=== PATIENT | male | born 1935 | race Caucasian/White ===

== ENCOUNTER 2016-09-18 23:22 | Inpatient (IN) | payer MEDICARE, BC ==
[~2016-09-18] VITALS: Ht 167.6 cm; Wt 64.9 kg
[2016-09-18 23:27] VITALS: BP 169/120; PULSE 132; RESP 16; TEMP 98.6; O2SAT 98
[2016-09-18] MEDS ORDERED: SODIUM CHLORIDE 0.9% FLUSH 5 ML FLUSH IVF PRN (23:30)
[2016-09-18] MEDS ORDERED: NITROGLYCERIN-DEXTROSE INJ 250 ML IV SCH (23:30)
[2016-09-18] MEDS ORDERED: ASPIRIN 81 MG CHEW TAB PO STA (23:30)
[2016-09-18] MEDS ORDERED: NITROGLYCERIN 0.4 MG SL 25 TABS/BTL SL STA (23:30)
[2016-09-18] MEDS ORDERED: SODIUM CHLOR 0.9% 1000 ML INJ 1,000 ML IV ONE (23:30)
[2016-09-18] MEDS ORDERED: HEPARIN SODIUM - IV 10,000 UNITS/10 ML VIAL IV STA (23:30)
[2016-09-18 23:34] VITALS: RESP 16; O2SAT 96
[2016-09-18 23:43] LABS: I-STAT POTASSIUM 3.6 MMOL/L (3.5-4.9); I-STAT SODIUM 140 MMOL/L (138-146)
[2016-09-18] MEDS ORDERED: HEPARIN-D5W INJ 250 ML ONE (23:43)
[2016-09-18] MEDS ORDERED: LOSA25TA PO (23:43)
[2016-09-18] MEDS ORDERED: HYDR25TA5 PO (23:43)
[2016-09-18 23:45] VITALS: BP 169/120; PULSE 132; RESP 16
[2016-09-18 23:45] LABS: BASOPHIL # 0.1 TH/MM3 (0-0.2); BASOPHIL % 1.2 % (0.0-2.0); EOSINOPHIL # 0.2 TH/MM3 (0-0.4); EOSINOPHIL % 1.9 % (0.0-4.0); HEMATOCRIT 45.2 % (39.0-51.0); HEMO FLAGS DIFF FINAL; LYMPH % 22.9 % (9.0-44.0); LYMPHOCYTE # 2.2 TH/MM3 (1.0-4.8); MEAN CELL VOLUME 88.7 FL (80.0-100.0); MEAN CORPUSCULAR HGB CONC 33.8 % (32.0-36.0); MONO % 10.8 % (0.0-8.0); NEUT % 63.2 % (16.0-70.0); PLATELET COUNT 220 TH/MM3 (150-450); RED BLOOD COUNT 5.09 MIL/MM3 (4.50-5.90); RED CELL DISTRIBUTION WIDTH 13.2 % (11.6-17.2); WHITE BLOOD COUNT 9.5 TH/MM3 (4.0-11.0)
[2016-09-18] MEDS ORDERED: METOPROLOL TARTRATE 50 MG TAB PO ONE (23:45)
[2016-09-18] MEDS ORDERED: HEPARIN-D5W INJ 250 ML IV SCH (23:45)
[2016-09-18 23:56] LABS: APTT (PATIENT) 26.1 SEC (24.3-30.1); PROTHROMBIN TIME - PATIENT 11.1 SEC (9.8-11.6)
[2016-09-19] VITALS (23 sets, daily range): BP systolic 105–161; BP diastolic 73–98; PULSE 55–122; RESP 16–18; TEMP 97.9–98.7; O2SAT 94–99
[2016-09-19 00:05] LABS: MAGNESIUM 2.4 MG/DL (1.5-2.5)
[2016-09-19 00:06] LABS: CREATINE KINASE 83 U/L (39-308)
[2016-09-19] MEDS ORDERED: SODIUM CHLORIDE 0.9% FLUSH 5 ML FLUSH FLUSH PRN (00:15)
[2016-09-19] MEDS ORDERED: NALOXONE HCL 0.4 MG/ML AMP IV PRN (00:15)
--- NOTE | 2016-09-19 00:23 | PD ---
HPI Chief Complaint: Chest Pain Time Seen by Provider: 23:30 Travel History International Travel<30 days: No Contact w/Intl Traveler<30days: No Traveled to known affect area: No History of Present Illness HPI 81-year-old male came in as a STEMI alert by EMS. Patient is from [place] when he started experiencing left-sided chest pain/pressure radiating down to his left arm. Patient has history of coronary artery disease and carries nitroglycerin with him. He took 2 of his own nitroglycerin which brought the pain down. By the time EMS arrived and gave him 2 baby aspirin's patient says his pain was completely gone. 12-lead EKG of EMS showed significant ST depression in V2 and V3. The 12-lead EKG after patient arrived appeared similar. Pain at this point was 0 out of 10. However a STEMI alert was called. Patient's blood pressure was 186 systolic and heart rate was in 120s to 130s. It was normal sinus on the monitor. [facility] Past Medical History Narrative Medical List of his past medical, surgical, social and family history was reviewed from the nursing note. Diminished Hearing: No Hypertension: Yes Tetanus Vaccination: < 5 Years Influenza Vaccination: No Past Surgical History Coronary Artery Bypass Graft: Yes (1994) Other Surgery: Yes (HERNIA) Social History Alcohol Use: No Tobacco Use: No Substance Use: No Allergies-Medications (Allergen,Severity, Reaction): Coded Allergies: No Known Allergies (Unverified , 09/18/16) Comments No known drug allergies. Reported Meds & Prescriptions Reported Meds & Active Scripts Active Reported Losartan (Losartan Potassium) 25 Mg Tab 25 Mg PO DAILY Narrative Medication List of his home medications reviewed from the nursing note. Review of Systems Except as stated in HPI: all other systems reviewed are Neg Physical Exam Narrative GENERAL: Awake, alert, anxious SKIN: Warm and dry. HEAD: Atraumatic. Normocephalic. EYES: Pupils equal and round. No scleral icterus. No injection or drainage. ENT: No nasal bleeding or discharge. Mucous membranes pink and moist. NECK: Trachea midline. No JVD. CARDIOVASCULAR: Regular rate and rhythm. Tachycardia. No murmur appreciated. RESPIRATORY: No accessory muscle use. Clear to auscultation. Breath sounds equal bilaterally. GASTROINTESTINAL: Abdomen soft, non-tender, nondistended. Hepatic and splenic margins not palpable. MUSCULOSKELETAL: No obvious deformities. No clubbing. No cyanosis. No edema. NEUROLOGICAL: Awake and alert. No obvious cranial nerve deficits. Motor grossly within normal limits. Normal speech. PSYCHIATRIC: Appropriate mood and affect; insight and judgment normal. Data Data Last Documented VS Orders Troponin I (09/18/16 23:30) Ckmb (Isoenzyme) Profile (09/18/16 23:30) Complete Blood Count With Diff (09/18/16 23:30) I-Stat Profile (09/18/16:30) I-Stat Creatinine (09/18/16 23:30) Calcium (09/18/16 23:30) Magnesium (Mg) (09/18/16 23:30) Prothrombin Time / Inr (Pt) (09/18/16 23:30) Act Partial Throm Time (Ptt) (09/18/16 23:30) B-Type Natriuretic Peptide (09/18/16 23:30) Chest, Single Ap (09/18/16 23:30) Electrocardiogram (09/18/16 23:30) Oxygen Administration (09/18/16 23:30) Iv Access Insert/Monitor (09/18/16 23:30) Oximetry (09/18/16 23:30) Sodium Chlor 0.9% 1000 Ml Inj (Ns 1000 M (09/18/16 23:30) Sodium Chloride 0.9% Flush (Ns Flush) (09/18/16 23:30) Aspirin Chew (Aspirin Chew) (09/18/16 23:30) Nitroglycerin Sl (Nitrostat Sl) (09/18/16 23:30) Nitroglycerin-Dextrose Inj (Nitroglyceri (09/18/16 23:30) Heparin Inj (Heparin Inj) (09/18/16 23:30) Metoprolol Tartrate (Lopressor) (09/18/16 23:45) Heparin-D5w Inj (Heparin-D5w Inj) (09/18/16 23:43) Heparin Infusion KHURRAM.Q1H (09/18/16 23:44) Heparin-D5w Inj (Heparin-D5w Inj) (09/18/16 23:45) Act Partial Throm Time (Ptt) (09/19/16 06:44) Admit Order (Ed Use Only) (09/19/16 00:13) Labs Laboratory Tests Test 09/18/16 23:34 Bedside Hemoglobin 15.0 G/DL Bedside Hematocrit 44.0 % Bedside Sodium 140 MMOL/L Bedside Potassium 3.6 MMOL/L Bedside Chloride 102 MMOL/L Bedside Blood Urea Nitrogen 28 MG/DL Bedside Creatinine 1.2 MG/DL Bedside Glucose 105 MG/DL Calcium Level 9.0 MG/DL Magnesium Level 2.4 MG/DL Total Creatine Kinase 83 U/L Troponin I LESS THAN 0.02 NG/ML B-Type Natriuretic Peptide 144 PG/ML MDM Medical Decision Making Medical Screen Exam Complete: Yes Emergency Medical Condition: Yes Medical Record Reviewed: Yes Interpretation(s) Twelve-lead EKG was reviewed by me. Normal sinus rhythm, normal axis, tachycardia, ST depression in the septal lateral leads, possible acute posterior WI. Heart rate of 131 bpm Differential Diagnosis Acute posterior WI, unstable angina Narrative Course 12:18 AM I discussed the case on the telephone with Dr. Reza. Picture of the 12-lead EKG was texted to him. After looking at the picture and given his chest -pain-free status Dr. Reza wanted the patient to be started on heparin drip and his plan was to do a cardiac catheterization in the morning. I went to let the patient know about this plan and he told me at that point that he had a cardiac catheterization done at a hospital in [place] in July this year. He was told at that time that he had 5 vessel blockage and would require a CABG. However patient did not want any heart surgeries. His daughter was on the phone from [place] who is his power of assistant district attorney and confirmed this. He just wanted the chest pain to be controlled and be sent home. He agreed to stay for the night. I let Dr. Reza know about this. He will see the patient in the morning and discuss this further with the patient. Patient has been admitted to the hospitalist. Patient was also put on nitro drip for blood pressure control as well. Critical Care Narrative Aggregate critical care time was 30 minutes. Time to perform other separately billable procedures was not included in the critical care time. My time did not include minutes spent treating any other patients simultaneously or on activities that did not directly contribute to the patient's treatment. The services I provided to this patient were to treat and/or prevent clinically significant deterioration that could result in: Unstable angina, heparin bolus and drip, nitro drip I provided critical care services requiring my management, as noted below: Chart data review, documentation time, medication orders and management, vital sign assessments/reviewing monitor data, ordering and reviewing lab tests, ordering and interpreting/reviewing x-rays and diagnostic studies, care of the patient and discussion of the patient with the admitting physicians. Procedures EKG Prior to Arrival: Yes Physician Communication Physician Communication Dr. Reza Diagnosis Primary Impression: Unstable angina Additional Impressions: Malignant hypertension Sinus tachycardia Admitting Information Admitting Physician Requests: Admit Scripts Clopidogrel (Plavix)75 Mg Tab75 Mg PO DAILY #30 TAB Prov:Micha Laws MD 09/20/16 Nitroglycerin SL (Nitrostat SL)0.4 Mg Subl0.4 Mg SL Q5M PRN (CHEST PAIN) #30 MG Prov:Micha Laws MD 09/20/16 Metoprolol Tartrate 25 Mg Tab12.5 Mg PO Q12HR #60 TAB Prov:Micha Laws MD 09/20/16 Isosorbide Mononitrate ER 30 Mg Taber30 Mg PO DAILY@07 #30 TAB Prov:Micha Laws MD 09/20/16 Atorvastatin (Lipitor)80 Mg Tab80 Mg PO DAILY #30 TAB Prov:Micha Laws MD 09/20/[address] (Aspirin EC)81 Mg Tabdr81 Mg PO DAILY #30 TAB Prov:Micha Laws MD 09/20/16 Lida Vasquez MD Sep 19, 2016 00:23 Twelve-lead EKG was reviewed by me. Normal sinus rhythm, normal axis, tachycardia, ST depression in the septal lateral leads, possible acute posterior WI. Heart rate of 131 bpm Differential Diagnosis Acute posterior WI, unstable angina Narrative Course 12:18 AM I discussed the case on the telephone with Dr. Reza. Picture of the 12-lead EKG was texted to him. After looking at the picture and given his chest pain-free status Dr. Reza wanted the patient to be started on heparin drip and his plan was to do a cardiac catheterization in the morning. I went to let the patient know about this plan and he told me at that point that he had a cardiac catheterization done at a hospital in [place] in July. He was told at that time that he had 5 vessel blockage and would require a CABG. However patient did not want any heart surgeries. His daughter was on the phone from [place] who is his power of assistant district attorney and confirmed this. He just wanted the chest pain to be controlled and be sent home. He agreed to stay for the night. I let Dr. Reza know about this. He will see the patient in the morning and discuss this further with the patient. Patient has been admitted to the hospitalist. Patient was also put on nitro drip for blood pressure control as well. Critical Care Narrative Aggregate critical care time was 30 minutes. Time to perform other separately billable procedures was not included in the critical care time. My time did not include minutes spent treating any other patients simultaneously or on activities that did not directly contribute to the patient's treatment. The services I provided to this patient were to treat and/or prevent clinically significant deterioration that could result in: Unstable angina, heparin bolus and drip, nitro drip I provided critical care services requiring my management, as noted below: Chart data review, documentation time, medication orders and management, vital sign assessments/reviewing monitor data, ordering and reviewing lab tests, ordering and interpreting/reviewing x-rays and diagnostic studies, care of the patient and discussion of the patient with the admitting physicians. Procedures EKG Prior to Arrival: Yes Physician Communication Physician Communication Dr. Reza Diagnosis Primary Impression: Unstable angina Additional Impressions: Malignant hypertension Sinus tachycardia Admitting Information Admitting Physician Requests: Lida Verma MD Sep 19, 2016 00:23
--- NOTE | 2016-09-19 00:29 | RADRPT ---
EXAM DATE/TIME: 09/18/2016 23:57 [facility] COMPARISON: No previous studies available for comparison. INDICATIONS : Stemi alert. MEDICAL HISTORY : None. SURGICAL HISTORY : None. ENCOUNTER: Initial ACUITY: 1 day PAIN SCORE: 0/10 LOCATION: chest FINDINGS: A single view of the chest demonstrates the lungs to be symmetrically aerated without evidence of mas s, infiltrate or effusion. Minimal basilar scarring and atelectasis. Tortuous and atherosclerotic aor ta. CONCLUSION: 1. Minimal basilar scarring and atelectasis. No effusion or pneumothorax. Miguel Angel Merchant MD on September 19, 2016 at 0:25 Board Certified Radiologist. This report was verified electronically.
[2016-09-19 05:52] LABS: APTT (PATIENT) 54.5 SEC (24.3-30.1)
[2016-09-19] MEDS: SODIUM CHLORIDE 0.9% FLUSH 5 ML FLUSH FLUSH SCH ×2 (08:18→21:00)
[2016-09-19] MEDS: ASPIRIN EC 81 MG TABEC PO SCH (09:31)
[2016-09-19] MEDS: LOSARTAN 25 MG TAB PO SCH (09:31)
[2016-09-19] MEDS ORDERED: PILL SPLITTER OTHER PRN (10:30)
--- NOTE | 2016-09-19 10:35 | MB ---
cc: DI BALL DATE OF CONSULTATION: 09/19/2016 REASON FOR CONSULTATION Non-ST elevation WA. HISTORY OF PRESENT ILLNESS This is an 81-year-old gentleman originally from [place] who presented to the emergency department at [place] with acute onset of substernal chest pain. The patient has a history of known severe coronary artery disease. Apparently he had a heart catheterization in [place] in which they recommended consideration for five-vessel bypass surgery. Given his 's debilitated state and need for constant care he elected not to proceed with any surgical intervention. He has been relatively symptom-free up until yesterday. Yesterday he had the acute onset of symptoms, took two sublingual nitroglycerin without resolution of his pain. He came into the emergency department and initial electrocardiogram showed profound ST depressions in lead V2 and V3. His symptoms actually resolved with nitroglycerin in addition to heparin. His EKG changes resolved. They initially called a STEMI Alert but that was cancelled, both with the resolution of his symptoms and discussion with the patient. Apparently the patient did not want to initially proceed with any cardiac catheterization knowing his coronary anatomy and did want to proceed with anything invasive in an attempt to get home to have intervention or surgical options reviewed. He is now currently symptom-free and wants to discuss options available. PAST MEDICAL HISTORY 1. Known coronary disease with multivessel involvement. 2. Hypertension. 3. Hernia. SOCIAL HISTORY Denies any alcohol, tobacco or drug use. ALLERGIES No known drug allergies. MEDICATIONS 1. Hydrochlorothiazide. 2. Losartan. FAMILY HISTORY Denies any family history of early coronary disease or sudden cardiac . REVIEW OF SYSTEMS A 12-point review of systems was performed and negative unless otherwise noted in the history of present illness. PHYSICAL EXAMINATION VITAL SIGNS: Temperature 98, pulse 61, blood pressure 148/89 mmHg. GENERAL: Alert and oriented x3, in no acute distress. HEENT: Pupils reactive to light and accommodation. Extraocular movements are intact. NECK: No jugular venous distention. No thyromegaly. No lymphadenopathy. No carotid bruits. LUNGS: Clear to auscultation bilaterally. CARDIOVASCULAR: Regular rate and rhythm without murmurs, rubs or gallops. ABDOMEN: Nontender, nondistended. Good bowel sounds. No hepatosplenomegaly. EXTREMITIES: No clubbing, cyanosis or edema. Good peripheral pulses. NEUROLOGIC: Cranial nerves intact. Motor and sensory grossly intact. LABORATORY DATA WBC 9.5, hemoglobin 15.2, platelet count 220. INR is 1. Sodium 140, potassium 3.6, BUN 28, creatinine 1.2. Troponin 0.24. ELECTROCARDIOGRAM Electrocardiogram: Sinus rhythm. Initial electrocardiogram showed ST depression in V2 and V3. ASSESSMENT 1. Non-ST elevation WA. 2. History of known coronary disease. 3. Hypertension. PLAN I had a lengthy discussion with both the patient and called his power of transactional attorney, his daughter, up [place]. We discussed all options. Obviously knowing his anatomy is not favorable, being recommended for coronary bypass surgery, we are limited in what we can do. This is his first anginal episode but he did have rather profound EKG changes and has a slight troponin elevation. Our options would be to reconsider coronary bypass surgery which he is not willing to do at this time away from his family support system, or to continue with the medical management approach, add aspirin, Plavix and long-acting nitrate and hope that we can get him back to [place] safely with his support system to review options again. Lastly, I offered to perform a repeat cardiac catheterization and see if there is one or two vessels, in particular, that seem to be more of the culprit lesions for his symptoms, which may be amendable to an easy intervention and to bridge him to safe travel. The patient and his daughter are going to discuss these options and ultimately come to a decision. addendum: patient and daughter decided against repeat LHC. plan for med mgt. watch trop and symptoms. if asymptomatic, plan for discharge tomorrow. MD ANAID Hathaway/[place] /8:54 AM /10:05 AM STACI
[2016-09-19] MEDS: CLOPIDOGREL 75 MG TAB PO SCH (11:18)
[2016-09-19] MEDS ORDERED: NITROGLYCERIN 0.4 MG SL 25 TABS/BTL SL PRN (11:30)
--- NOTE | 2016-09-19 11:33 | HHI.HP ---
[facility] No Primary Care Physician Admission Diagnosis chest pain, abnormal EKG, malignant hypertension, tachycardia Diagnoses: (1) Unstable angina (2) Malignant hypertension (3) Non-ST elevation NV (NSTEMI) (4) CAD (coronary artery disease) (5) Multi-vessel coronary artery stenosis Chief Complaint: Chest pressure Travel History International Travel<30 Days: No Contact w/Intl Traveler <30 Da: No Traveled to Known Affected Are: No History of Present Illness 81-year-old male with a known history of multi-vessel disease CAD with had a recent left heart catheterization in July 2016 was told he had 5 vessel disease is [place] chest 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 He denied any diaphoresis at the time. Initially STEMI was call however cancer. Patient diagnosed with non-ST elevation NV for which cardiology was consulted. However patient and his daughter who is POA have decided to go for medical management instead of left heart catheterization for further evaluation. Patient states, he would like to be discharged there for him to take care of his is currently [place] a [place]. He also reported that he eventually will go back to [place] for further evaluation. Patient reports, history of cardiac stent back in . Review of Systems Other 12 systems reviewed and are negative except for the ones mentioned in the history of present illness Past Family Social History Past Medical History Hypertension Known history of multi-vessel coronary artery disease CAD Past Surgical History Hernia repair Allergies: Coded Allergies: No Known Allergies (Unverified , 09/18/16) Family History Family history of coronary artery disease Social History He denies tobacco, alcohol or illicit drug intake Physical Exam Vital Signs Vital Signs Date Time Temp Pulse Resp B/P Pulse Ox O2 Delivery O2 Flow Rate FiO2 09/19/16 08:00 97.9 67 16 161/95 95 09/19/16 08:00 56 09/19/16 04:46 61 18 148/89 97 09/19/16 02:37 98.7 71 18 151/98 95 09/19/16 02:20 98.3 58 16 135/73 98 Nasal Cannula 2 3/17/17 01:00 66 16 119/81 96 Nasal Cannula 2 09/19/16 00:38 118 16 116/82 99 Nasal Cannula 09/19/16 00:14 122 16 136/91 99 Nasal Cannula 2 09/18/16 23:45 132 16 169/120 09/18/16 23:34 16 96 Nasal Cannula 2 09/18/16 23:34 98 Nasal Cannula 2 09/18/16 23:31 129 16 98 Nasal Cannula 2 09/18/16 23:27 98.6 132 16 169/120 98 Physical Exam GENERAL: This is a well-nourished, well-developed patient, in no apparent distress. SKIN: No rashes, ecchymoses or lesions. Cool and dry. HEAD: Atraumatic. Normocephalic. No temporal or scalp tenderness. EYES: Pupils equal round and reactive. Extraocular motions intact. No scleral icterus. No injection or drainage. ENT: Nose without bleeding, purulent drainage or septal hematoma. Throat without erythema, tonsillar hypertrophy or exudate. Uvula midline. Airway patent. NECK: Trachea midline. No JVD or lymphadenopathy. Supple, nontender, no meningeal signs. CARDIOVASCULAR: Regular rate and rhythm without murmurs, gallops, or rubs. RESPIRATORY: Clear to auscultation. Breath sounds equal bilaterally. No wheezes , rales, or rhonchi. GASTROINTESTINAL: Abdomen soft, non-tender, nondistended. No hepato-splenomegaly , or palpable masses. No guarding. MUSCULOSKELETAL: Extremities without clubbing, cyanosis, or edema. No joint tenderness, effusion, or edema noted. No calf tenderness. Negative Homans sign bilaterally. NEUROLOGICAL: Awake and alert. Cranial nerves II through XII intact. Motor and sensory grossly within normal limits. Five out of 5 muscle strength in all muscle groups. Normal speech. Laboratory Laboratory Tests Test 09/18/16 09/19/16 23:34 04:43 White Blood Count 9.5 Red Blood Count 5.09 Hemoglobin 15.3 Hematocrit 45.2 Mean Corpuscular Volume 88.7 Mean Corpuscular Hemoglobin 30.0 Mean Corpuscular Hemoglobin 33.8 Concent Red Cell Distribution Width 13.2 Platelet Count 220 Mean Platelet Volume 8.4 Neutrophils (%) (Auto) 63.2 Lymphocytes (%) (Auto) 22.9 Monocytes (%) (Auto) 10.8 Eosinophils (%) (Auto) 1.9 Basophils (%) (Auto) 1.2 Neutrophils # (Auto) 6.0 Lymphocytes # (Auto) 2.2 Monocytes # (Auto) 1.0 Eosinophils # (Auto) 0.2 Basophils # (Auto) 0.1 CBC Comment DIFF FINAL Differential Comment Prothrombin Time 11.1 Prothromb Time International 1.0 Ratio Activated Partial 26.1 54.5 Thromboplast Time Bedside Hemoglobin 15.0 Bedside Hematocrit 44.0 Bedside Sodium 140 Bedside Potassium 3.6 Bedside Chloride 102 Bedside Blood Urea Nitrogen 28 Bedside Creatinine 1.2 Bedside Glucose 105 Calcium Level 9.0 Magnesium Level 2.4 Total Creatine Kinase 83 62 Troponin I LESS THAN 0.02 0.24 B-Type Natriuretic Peptide 144 Result Diagram: 09/18/162333 Imaging Last Impressions Chest X-Ray 09/18/162329 Signed Impressions: Service Date/Time: September 23:57 - CONCLUSION: 1. Minimal basilar scarring and atelectasis. No effusion or pneumothorax. Miguel Angel Merchant MD Assessment and Plan Problem List: (1) Non-ST elevation NV (NSTEMI) ICD Code: I21.4 Status: Acute (2) Multi-vessel coronary artery stenosis ICD Code: I25.10 Status: Acute (3) CAD (coronary artery disease) ICD Code: I25.10 Status: Acute (4) Unstable angina ICD Code: I20.0 Status: Acute (5) Malignant hypertension ICD Code: I10 Status: Acute (6) Benign hypertension ICD Code: I10 Status: Acute Assessment and Plan 81-year-old male with Non-ST elevation NV Known history of multivessel coronary stenosis Unstable angina CAD -Cardiology consultation appreciated however patient and his daughter was POA decided that they will rather have medical management and steroid of further evaluation with left heart catheterization -Currently on Imdur, Plavix, Cozaar, aspirin, Lopressor, nitroglycerin sublingual. Heparin drip was discontinued -Check lipid profile and start statin accordingly Hypertensive emergency: Resolved and continue Cozaar and Lopressor Hypertension: On Cozaar and Lopressor DVT prophylaxis: Heparin Code Status Full code Discussed Condition With Patient Physician Certification 2 Midnight Certification Type: Admission for Inpatient Services Order for Inpatient Services The services are ordered in accordance with Medicare regulations or non- Medicare payer requirements, as applicable. In the case of services not specified as inpatient-only, they are appropriately provided as inpatient services in accordance with the 2-midnight benchmark. Estimated LOS (days): 2 days is the estimated time the patient will need to remain in the hospital, assuming treatment plan goals are met and no additional complications. Post-Hospital Plan: Not yet determined Micha Laws MD Sep 19, 2016 11:33
[2016-09-19 13:23] LABS: APTT (PATIENT) 26.4 SEC (24.3-30.1)
--- NOTE | 2016-09-19 14:27 | EKG ---
Date Performed: 09/19/2016 Time Performed: 11:28:42 PTAGE: 81 years EKG: Sinus bradycardia with interpolated PVC(s) with 1st degree A-V block Inferior T wave change s are nonspecific Abnormal ECG COMPARED TO PRIOR ELECTROCARDIOGRAM, PVCs are present. PREVIOUS TRACING : 09/19/2016 04.52 DOCTOR: Dat Marquez Interpretating Date/Time 09/19/2016 14:26:30
--- NOTE | 2016-09-19 15:02 | EKG ---
Date Performed: 09/18/2016 Time Performed: 23:27:41 PTAGE: 81 years EKG: SINUS TACHYCARDIA MARKED ST DEPRESSION, CONSIDER SUBENDOCARDIAL INJURY ABNORMAL ECG PREVIOUS TRACING : 09/13/1998 08.54.52 Compared to previous tracing, the patient is now tachyca rdic with significant ST depression. Clinical correlation for acute injury pattern requested. DOCTOR: Sigrid Lainez Interpretating Date/Time 09/19/2016 15:01:32
--- NOTE | 2016-09-19 15:02 | EKG ---
Date Performed: 09/19/2016 Time Performed: 04:52:26 PTAGE: 81 years EKG: Sinus bradycardia with 1st degree A-V block Prolonged QT interval Inferior T wave changes a re nonspecific Abnormal ECG PREVIOUS TRACING : 09/18/2016 23.27 Compared to previous tracing, the patient no longer has mar ked ST depression DOCTOR: Sigrid Lainez Interpretating Date/Time 09/19/2016 15:02:12
[2016-09-19] MEDS: METOPROLOL TARTRATE 25 MG TAB PO SCH (21:55)
[2016-09-20] VITALS (10 sets, daily range): BP systolic 107–132; BP diastolic 69–90; PULSE 55–69; RESP 17–18; TEMP 98.2–98.5; O2SAT 94–95
[2016-09-20 06:58] LABS: HDL CHOLESTEROL 48.8 MG/DL (40.0-60.0)
[2016-09-20] MEDS ORDERED: ISOSORBIDE MONONITRATE 30 MG TAB PO SCH (07:00)
--- NOTE | 2016-09-20 07:42 | PD.CARD.PN ---
Subjective Subjective Remarks The chart was reviewed. The patient denies chest pain, shortness of breath, bleeding, GI symptoms. Telemetry reveals sinus rhythm. Discharge planning notes reviewed. Objective Medications Reviewed Vital Signs / I&O Vital Signs Date Time Temp Pulse Resp B/P Pulse Ox O2 Delivery O2 Flow Rate FiO2 09/20/16 07:00 64 09/20/16 06:00 64 09/20/16 05:00 69 09/20/16 04:00 98.2 59 18 132/90 95 09/20/16 04:00 56 09/20/16 03:00 55 09/20/16 02:00 58 09/20/16 01:00 60 09/20/16 00:00 56 09/20/16 00:00 98.2 56 18 119/74 94 09/19/16 23:00 60 09/19/16 22:00 64 09/19/16 21:00 82 09/19/16 20:00 98.1 78 16 105/78 95 09/19/16 20:00 77 09/19/16 19:00 89 09/19/16 18:00 64 09/19/16 17:00 64 09/19/16 16:00 61 09/19/16 16:00 98.4 55 16 115/80 94 09/19/16 15:00 60 09/19/16 14:00 64 09/19/16 13:00 66 09/19/16 12:00 72 09/19/16 12:00 98.1 59 16 146/91 95 09/19/16 11:00 56 09/19/16 10:00 62 09/19/16 09:00 60 09/19/16 08:00 97.9 67 16 161/95 95 09/19/16 08:00 56 I/O 09/19/16 09/19/16 09/19/16 09/20/16 09/20/16 09/20/16 07:00 15:00 23:00 07:00 15:00 23:00 Intake Total 16 ml 752 ml 360 ml Output Total 350 ml 650 ml Balance -334 ml 102 ml 360 ml Intake Oral 0 ml 720 ml 360 ml IV Total 16 ml 32 ml Output Urine Total 350 ml 650 ml # Voids 2 # Bowel Movements 0 0 0 Physical Exam GENERAL: Well-nourished, well-developed patient in no apparent distress. SKIN: Warm and dry. NECK: JVD normal - less than or equal to 5 cm H20. CARDIOVASCULAR: Regular rate and rhythm without gallops, or rubs. 1/6 early peaking systolic ejection murmur at the base. RESPIRATORY: Normal breath sounds - equal bilaterally. No accessory muscle use. No wheezes, rales or rubs. PERIPHERY: No cyanosis, or edema. Laboratory Hepatic profile pending Laboratory Tests Test 09/19/16 09/20/16 12:35 04:47 Activated Partial 26.4 SEC Thromboplast Time Total Creatine Kinase 67 U/L Troponin I 0.36 NG/ML Triglycerides Level 98 MG/DL Cholesterol Level 177 MG/DL LDL Cholesterol 109 MG/DL HDL Cholesterol 48.8 MG/DL Cholesterol/HDL Ratio 3.62 RATIO Imaging Reviewed Assessment and Plan Assessment and Plan Problems: Non-ST elevation [place] with known multivessel coronary disease Hypertension Hyperlipidemia Recommendations: I have ordered a stat hepatic profile. The patient needs to be started on high- dose statin therapy before he leaves. Continue other medication without change Discharge later today. The patient cannot drive and will arrange transport back home. Low-cholesterol/salt diet No heavy exertion All questions answered. We will be available if needed. Dat Marquez MD Sep 20, 2016 07:42
[2016-09-20 08:01] LABS: INDIRECT BILIRUBIN 0.7 MG/DL (0.0-0.8); TOTAL BILIRUBIN ADULT 0.9 MG/DL (0.2-1.0)
[2016-09-20] MEDS ORDERED: METO25TA3 PO (08:13)
[2016-09-20] MEDS ORDERED: ISOS30TA3 PO (08:13)
[2016-09-20] MEDS ORDERED: LIPI80TA PO (08:13)
[2016-09-20] MEDS ORDERED: ASPI81TA11 PO (08:13)
[2016-09-20] MEDS ORDERED: NITR0.4S SL (08:13)
[2016-09-20] MEDS: SODIUM CHLORIDE 0.9% FLUSH 5 ML FLUSH FLUSH SCH (08:14)
[2016-09-20] MEDS: ASPIRIN EC 81 MG TABEC PO SCH (08:14)
[2016-09-20] MEDS: LOSARTAN 25 MG TAB PO SCH (08:14)
[2016-09-20] MEDS: METOPROLOL TARTRATE 25 MG TAB PO SCH (08:15)
[2016-09-20] MEDS: CLOPIDOGREL 75 MG TAB PO SCH (08:15)
--- NOTE | 2016-09-20 08:17 | HHI.PR ---
Subjective Remarks Follow-up non-ST elevation FL/hypertensive urgency 09/20/16-patient seen and examined, denies any chest pain or shortness of breath. States he is ready for discharge home. No acute event overnight. Objective Vitals Vital Signs Date Time Temp Pulse Resp B/P Pulse Ox O2 Delivery O2 Flow Rate FiO2 09/20/16 08:00 98.5 69 17 107/69 94 09/20/16 07:00 64 09/20/16 06:00 64 09/20/16 05:00 69 09/20/16 04:00 98.2 59 18 132/90 95 09/20/16 04:00 56 09/20/16 03:00 55 09/20/16 02:00 58 09/20/16 01:00 60 09/20/16 00:00 56 09/20/16 00:00 98.2 56 18 119/74 94 09/19/16 23:00 60 09/19/16 22:00 64 09/19/16 21:00 82 09/19/16 20:00 98.1 78 16 105/78 95 09/19/16 20:00 77 09/19/16 19:00 89 09/19/16 18:00 64 09/19/16 17:00 64 09/19/16 16:00 61 09/19/16 16:00 98.4 55 16 115/80 94 09/19/16 15:00 60 09/19/16 14:00 64 09/19/16 13:00 66 09/19/16 12:00 72 09/19/16 12:00 98.1 59 16 146/91 95 09/19/16 11:00 56 09/19/16 10:00 62 09/19/16 09:00 60 I/O 09/19/16 09/19/16 09/19/16 09/20/16 09/20/16 09/20/16 07:00 15:00 23:00 07:00 15:00 23:00 Intake Total 16 ml 752 ml 360 ml Output Total 350 ml 650 ml Balance -334 ml 102 ml 360 ml Intake Oral 0 ml 720 ml 360 ml IV Total 16 ml 32 ml Output Urine Total 350 ml 650 ml # Voids 2 # Bowel Movements 0 0 0 Result Diagram: 09/18/162333 Imaging Last Impressions Chest X-Ray 3/16/17 2330 Signed Impressions: Service Date/Time: September 23:57 - CONCLUSION: 1. Minimal basilar scarring and atelectasis. No effusion or pneumothorax. Miguel Angel Merchant MD Objective Remarks GENERAL: NAD SKIN: Warm and dry. HEAD: Normocephalic. EYES: No scleral icterus. No injection or drainage. NECK: Supple, trachea midline. No JVD or lymphadenopathy. CARDIOVASCULAR: Regular rate and rhythm without murmurs, gallops, or rubs. RESPIRATORY: Breath sounds equal bilaterally. No accessory muscle use. GASTROINTESTINAL: Abdomen soft, non-tender, nondistended. MUSCULOSKELETAL: No cyanosis, or edema. BACK: Nontender without obvious deformity. No CVA tenderness. Procedures none A/P Problem List: (1) Non-ST elevation FL (NSTEMI) ICD Code: I21.4 Status: Acute (2) Multi-vessel coronary artery stenosis ICD Code: I25.10 Status: Acute (3) CAD (coronary artery disease) ICD Code: I25.10 Status: Chronic (4) Unstable angina ICD Code: I20.0 Status: Resolved (5) Malignant hypertension ICD Code: I10 Status: Resolved (6) Benign hypertension ICD Code: I10 Status: Chronic Assessment and Plan 81-year-old male with Non-ST elevation FL Known history of multivessel coronary stenosis Unstable angina CAD -Cardiology consultation appreciated however patient and his daughter who is POA decided that they will rather have medical management and therefore does not want any further evaluation with left heart catheterization -Currently on Imdur, Plavix, Cozaar, aspirin, Lopressor, nitroglycerin sublingual and Lipitor Hypertensive emergency: Resolved and continue Cozaar and Lopressor Hypertension: On Cozaar and Lopressor DVT prophylaxis: Heparin Micha Laws MD Sep 20, 2016 08:17
--- NOTE | 2016-09-20 08:19 | HHI.DS ---
Discharge Summary Admission Date Sep 19, 2016 at 00:14 Discharge Date: Sep 20, 2016 Admitting Diagnosis chest pain, abnormal EKG, malignant hypertension, tachycardia (1) Non-ST elevation [place] (NSTEMI) ICD Code: I21.4 (2) Multi-vessel coronary artery stenosis ICD Code: I25.10 (3) CAD (coronary artery disease) ICD Code: I25.10 (4) Unstable angina ICD Code: I20.0 (5) Malignant hypertension ICD Code: I10 (6) Benign hypertension ICD Code: I10 Procedures none Brief History - From Admission 81-year-old male with a known history of multi-vessel disease CAD with had a recent left heart catheterization in July 2016 was told he had 5 vessel disease is [place] [facility] chest 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 He denied any diaphoresis at the time. Initially STEMI was call however cancer. Patient diagnosed with non-ST elevation OR for which cardiology was consulted. However patient and his daughter who is POA have decided to go for medical management instead of left heart catheterization for further evaluation. Patient states, he would like to be discharged there for him to take care of his is currently [place]. He also reported that he eventually will go back to [place] for further evaluation. Patient reports, history of cardiac stent back in . CBC/BMP: 09/18/16 2334 Significant Findings Laboratory Tests Test 09/18/16 09/19/16 09/19/16 09/20/16 23:34 04:43 12:35 04:47 Monocytes (%) (Auto) 10.8 % (0.0-8.0) Monocytes # (Auto) 1.0 TH/MM3 (0-0.9) Bedside Blood Urea Nitrogen 28 MG/DL (8-26) Bedside Glucose 105 MG/DL (60-95) Troponin I LESS THAN 0.02 0.24 NG/ML 0.36 NG/ML NG/ML (0.02-0.05) (0.02-0.05) (0.02-0.05) B-Type Natriuretic Peptide 144 PG/ML (0-100) Activated Partial 54.5 SEC Thromboplast Time (24.3-30.1) Aspartate Amino Transf 14 U/L (15-37) (AST/SGOT) Albumin 3.3 GM/DL (3.4-5.0) LDL Cholesterol 109 MG/DL (0-99) Imaging Last Impressions Chest X-Ray 09/18/16 2330 Signed Impressions: Service Date/Time: September 23:57 - CONCLUSION: 1. Minimal basilar scarring and atelectasis. No effusion or pneumothorax. Miguel Angel Merchant MD PE at Discharge GENERAL: NAD SKIN: Warm and dry. HEAD: Normocephalic. EYES: No scleral icterus. No injection or drainage. NECK: Supple, trachea midline. No JVD or lymphadenopathy. CARDIOVASCULAR: Regular rate and rhythm without murmurs, gallops, or rubs. RESPIRATORY: Breath sounds equal bilaterally. No accessory muscle use. GASTROINTESTINAL: Abdomen soft, non-tender, nondistended. MUSCULOSKELETAL: No cyanosis, or edema. BACK: Nontender without obvious deformity. No CVA tenderness. Hospital Course Non-ST elevation [place] Known history of multivessel coronary stenosis Unstable angina CAD -Cardiology consultation appreciated however patient and his daughter who is POA decided that they will rather have medical management and therefore does not want any further evaluation with left heart catheterization -He was started on Imdur, Plavix, Cozaar, aspirin, Lopressor, nitroglycerin sublingual and Lipitor. Heparin drip discontinued Hypertensive emergency: Resolved and continued on Cozaar and Lopressor Hypertension: Treated with Cozaar and Lopressor DVT prophylaxis: Heparin drip Pt Condition on Discharge: Fair Discharge Disposition: Discharge Home Discharge Time: <= 30 minutes Discharge Instructions DIET: Follow Instructions for: Heart Healthy Diet Activities you can perform: Regular-No Restrictions Activities to Avoid: Strenuous Activity Follow up Referrals: Cardiology - 1 Week PCP Follow-up - 1 Week New Medications: Aspirin DR (Aspirin EC) 81 Mg Tabdr 81 MG PO DAILY Prevent Blood Clot #30 TAB Atorvastatin (Lipitor) 80 Mg Tab 80 MG PO DAILY Cholesterol Management #30 TAB Clopidogrel (Plavix) 75 Mg Tab 75 MG PO DAILY Prevent Blood Clot #30 TAB Isosorbide Mononitrate ER (Isosorbide Mononitrate ER) 30 Mg Bari 30 MG PO DAILY@07 Blood Pressure Management #30 TAB Metoprolol Tartrate (Metoprolol Tartrate) 25 Mg Tab 12.5 MG PO Q12HR Blood Pressure Management #60 TAB Nitroglycerin SL (Nitrostat SL) 0.4 Mg Subl 0.4 MG SL Q5M PRN CHEST PAIN #30 MG Continued Medications: Losartan (Losartan) 25 Mg Tab 25 MG PO DAILY Blood Pressure Management #30 Ref 0 TAB Discontinued Medications: Hydrochlorothiazide (Hydrochlorothiazide) 25 Mg Tab 25 MG PO DAILY #30 Ref 0 TAB Micha Laws MD Sep 20, 2016 08:19
[2016-09-20] MEDS ORDERED: ATORVASTATIN 80 MG TAB PO SCH (09:00)
[2016-09-20] MEDS ORDERED: PLAV75TA29 PO (09:46)
== END 2016-09-20 11:03 | disposition home or self-care (01) | DRG 281 ==
LOC: NEPE 23:22 → NEDA 09-19 00:14 → HCIN 09-19 02:37
PROVIDERS: ADMIT Hospitalist; ATTEND Hospitalist
DX: I21.4 Non-ST elevation (NSTEMI) myocardial infarction (principal); I16.1 Hypertensive emergency; I10 Essential (primary) hypertension; R00.0 Tachycardia, unspecified; I25.10 Atherosclerotic heart disease of native coronary artery without angina pectoris; E78.5 Hyperlipidemia, unspecified; Z82.49 Family history of ischemic heart disease and other diseases of the circulatory system; Z95.1 Presence of aortocoronary bypass graft; Z95.5 Presence of coronary angioplasty implant and graft
CPT/HCPCS: 71010; 80061; 80076; 82310; 82435; 82550; 82565; 82947; 83735; 83880; 84132; 84295; 84484; 84520; 85025; 85610; 85730; 93005; 96365; 96375; 96376; J1644; J7030